=== PATIENT | female | born 1985 | race Caucasian/White ===

== ENCOUNTER 2022-05-18 20:21 | Emergency (ER) | payer SELFPAY ==
[~2022-05-18 20:21] MED LIST: MEDROL4 MG PO
[2022-05-18 20:54] LABS: HEMOGLOBIN 12.2 gm/dl (12.3-15.3); RED BLOOD COUNT 5.03 M/UL (4.00-5.10); WHITE BLOOD COUNT 10.6 K/UL (4.5-11.0)
[2022-05-18 21:20] LABS: BUN/CREATININE RATIO 19 (0-10)
== END 2022-05-19 00:57 | disposition home or self-care (01) ==
LOC: ER1 20:21
PROVIDERS: Family Medicine
DX: R07.9 Chest pain, unspecified (principal); M79.602 Pain in left arm
CPT/HCPCS: 71045; 80053; 82550; 82553; 84484; 85025; 93005; 99285